=== PATIENT | female | born 1955 | race Caucasian/White ===

== ENCOUNTER 2018-12-24 17:36 | Emergency (ER) | payer OTHER ==
[~2018-12-24] VITALS: Ht 162.6 cm; Wt 86.6 kg
[~2018-12-24 17:36] MED LIST: AXID300 MG PO; CALCIUM CITRAT250 MG PO; COLACE100 MG PO; CRESTOR10 MG PO; DAILY VITAMIN1 EAC3 PO; MACRODANTIN50 MG PO; SYNTHROID50 MCG PO; VITAMIN D1000 UNIT PO; Z.0.ADULT LOW DOSE81 PO; Z.0.ANTIVERT12.5 MG PO; Z.0.CRESTOR10 MG PO; Z.0.HYDROCHLOROTHIA2 PO; Z.0.LISINOPRIL10 MG PO; Z.0.PRILOSEC20 MG PO; Z.0.SYNTHROID25 MCG PO; Z.0.TENORMIN50 MG PO; Z.0.TOVIAZ8 MG PO; Z.0.ZETIA10 MG PO; Z.0.ZOLOFT100 MG PO
--- OUTSIDE RECORDS SUMMARY | 2018-12-24 17:39 | XMS REPORT | Clinical Summary ---
Author Author [facility] Organization [facility] Address Unknown Phone Unavailable Care Team Providers Care Corncob Pipes Assembler Name Role Phone Mindy Laguerre MD PCP Unavailable Allergies Comments Active Allergy Reactions Severity Noted Date Morphine Other (See 09/11/2015 Comments) Morphine Sulfate 01/03/2016 Penicillins Other (See 09/11/2015 Comments) Tetanus Immune Globulin 01/03/2016 Tetanus Vaccines And Other (See 09/11/2015 Toxoid Comments) Medications End Date Status Medication Sig Dispensed Refills Start Date Active fesoterodine (TOVIAZ) 8 Take 8 mg by 0 mg tablet extended mouth. 4 release 24 hr Active cholecalciferol, vitamin Take by 0 D3, (VITAMIN D3) 2,000 mouth. unit capsule capsule Active omeprazole (PriLOSEC) 20 Take 20 mg by 0 MG capsule mouth daily. Active valACYclovir (VALTREX) Take 1 tablet 2 tablet 10 1000 MG tablet (1,000 mg 6 total) by mouth 2 (two) times a day as needed (fever blisters). Active ezetimibe (ZETIA) 10 mg 0 tablet 8 Active aspirin (ECOTRIN) 81 MG by NOT 0 enteric coated tablet APPLICABLE route. Active sertraline (ZOLOFT) 100 TAKE 1 TABLET 180 tablet 3 MG tablet TWICE A DAY. 8 (200 MG DAILY) Active rosuvastatin (CRESTOR) 20 TAKE 1 TABLET 90 tablet 3 MG tablet DAILY 8 Active buPROPion XL (WELLBUTRIN TAKE 1 TABLET 90 tablet 3 XL) 150 MG 24 hr tablet DAILY 9 Active SYNTHROID 25 mcg tablet Take 1 tablet 90 tablet 2 (25 mcg 9 total) by mouth every morning. Active metFORMIN XR Take 2 360 tablet 3 (GLUCOPHAGE-XR) 500 mg 24 tablets 9 hr tablet (1,000 mg total) by mouth 2 (two) times a day. 11/15/2019 Active conjugated estrogens Insert 0.5 g 30 g 0 (PREMARIN) 0.625 mg/gram into the 9 vaginal cream vagina 3 (three) times a week. Active OZEMPIC 0.25 mg or 0.5 INJECT 0.25 12 Syringe 0 mg(2 mg/1.5 mL) pen MG 9 injector SUBCUTANEOUS EVERY 7 DAYS 10/14/2018 Discontinued docusate sodium (COLACE) Take 100 mg 0 100 MG capsule by mouth 2 (two) times a day as needed for constipation. 10/14/2018 Discontinued therapeutic multivitamin Take 1 tablet 0 (THERAGRAN) tablet by mouth daily. 04/15/2018 Discontinued magnesium oxide 250 mg Take 250 mg 0 tablet by mouth daily. 01/08/2018 buPROPion XL (WELLBUTRIN Take 1 tablet 30 tablet 0 XL) 150 MG 24 hr tablet (150 mg 7 total) by mouth daily. 03/07/2018 Discontinued lisinopril TAKE 1 TABLET 90 tablet 3 (PRINIVIL,ZESTRIL) 10 mg DAILY 7 tablet 02/14/2018 rosuvastatin (CRESTOR) 20 Take 1 tablet 30 tablet 0 MG tablet (20 mg total) 7 by mouth daily. Until mail order arrives. NO REFILLS 04/04/2018 Discontinued sertraline (ZOLOFT) 100 TAKE 1 TABLET 180 tablet 3 201 MG tablet TWICE A DAY. 7 (200 MG DAILY) 10/14/2018 Discontinued metFORMIN XR TAKE 1 TABLET 180 tablet 3 (GLUCOPHAGE-XR) 500 mg 24 TWICE DAILY 8 hr tablet 10/14/2018 Discontinued SYNTHROID 25 mcg tablet TAKE 1 TABLET 90 tablet 2 EVERY MORNING 8 08/20/2018 Discontinued buPROPion XL (WELLBUTRIN TAKE 1 TABLET 90 tablet 1 XL) 150 MG 24 hr tablet DAILY 8 11/14/2018 Discontinued lisinopril TAKE 1 TABLET 90 tablet 3 (PRINIVIL,ZESTRIL) 10 mg DAILY 8 tablet 05/15/2018 ciprofloxacin (CIPRO) 500 Take 1 tablet 14 tablet 0 MG tablet (500 mg 8 total) by mouth 2 (two) times a day for 7 days. 05/08/2018 Discontinued methylPREDNISolone follow 21 tablet 0 (MEDROL DOSEPAK) 4 mg package 8 tablet directions 06/07/2018 dicyclomine (BENTYL) 20 Take 1 tablet 60 tablet 0 201 mg tablet (20 mg total) 8 by mouth 2 (two) times a day for 30 days. 06/07/2018 dicyclomine (BENTYL) 20 Take 1 tablet 60 tablet 0 mg tablet (20 mg total) 8 by mouth 2 (two) times a day for 30 days. 11/28/2018 Discontinued semaglutide (OZEMPIC) Inject 0.25 1 Syringe 0 0.25 mg or 0.5 mg(2 mg under the 9 mg/1.5 mL) pen injector skin every 7 days. Active Problems Problem Noted Date Enchondroma of humerus 04/04/2017 Type 2 diabetes mellitus with hyperglycemia, without long-term current use 10/02/2016 of insulin Iron deficiency anemia 10/02/2016 Vitamin D deficiency 10/02/2016 Adrenal mass 09/11/2015 Overview: Last MR in 2012 Depression 09/11/2015 Essential hypertension 09/11/2015 Herpes labialis 09/11/2015 HLD (hyperlipidemia) 09/11/2015 Hypothyroidism 09/11/2015 Morbid obesity 09/11/2015 Osteopenia 09/11/2015 Recurrent urinary tract infection 09/11/2015 Overview: Macrodantin Urinary urgency 09/11/2015 Umbilical hernia 09/11/2015 Encounters Care Team Description Date Type Specialty Mindy Laguerre MD 11/28/2018 Refill Internal Medicine Mindy Laguerre MD Type 2 diabetes mellitus with hyperglycemia, without long-term current use of insulin (HCC) (Primary Dx); Essential hypertension; Acute cystitis without hematuria; Psoriasis 11/14/2018 Office Visit Internal Medicine Mindy Laguerre MD 10/16/2018 Orders Only Internal Medicine Mindy Laguerre MD 10/15/2018 Orders Only Internal Medicine Mindy Laguerre MD Type 2 diabetes mellitus with hyperglycemia, without long-term current use of insulin (HCC) (Primary Dx); Mixed hyperlipidemia; Acquired hypothyroidism 10/14/2018 Office Visit Internal Medicine Mindy Laguerre MD 08/20/2018 Refill Internal Medicine Mindy Laguerre MD 05/09/2018 Telephone Internal Medicine Shine Richmond MD Colitis (Primary Dx) 05/08/2018 Emergency Emergency Medicine Mindy Laguerre MD Flu vaccine need (Primary Dx); Flu-like symptoms; Gastroenteritis 05/08/2018 Office Visit Internal Medicine Mindy Laguerre MD 05/08/2018 Telephone Internal Medicine Bladimir Tom MA Type 2 diabetes mellitus without complication, without long- term current use of insulin (Primary Dx); Transaminitis 04/18/2018 Telephone Internal Medicine Mindy Laguerre MD Flu vaccine need (Primary Dx); Routine general medical examination at a health care facility; Essential hypertension; Acquired hypothyroidism; Mixed hyperlipidemia; Type 2 diabetes mellitus without complication, without long-term current use of insulin; Vitamin D deficiency 04/15/2018 Office Visit Internal Medicine Mindy Laguerre MD 04/04/2018 Refill Internal Medicine Mindy Laguerre MD 03/07/2018 Refill Internal Medicine Mindy Laguerre MD 02/04/2018 Refill Internal Medicine after 12/23/2017 Immunizations Name Dates Previously Given Next Due FLUZONE HIGH-DOSE PF 04/15/2018 INFLUENZA QUAD PF 04/10/2017, 07/04/2016 Influenza (IM) 04/29/2015 Preservative Free Influenza Trivalent 04/29/2014 Pneumococcal Conjugate 07/30/2013 Zoster 10/28/2012 Family History Medical History Relation Name Comments Diabetes Father Heart disease Father Stroke Maternal Grandfather Heart disease Maternal Grandmother COPD Mother Depression Mother Diabetes Mother Heart disease Mother Hypertension Mother Thyroid disease Mother Relation Name Status Comments Father Maternal Grandfather Maternal Grandmother Mother Social History Date Tobacco Use Types Packs/Day Years Used Never Smoker Smokeless Tobacco: Never Used Alcohol Use Drinks/Week oz/Week Comments Yes Sex Assigned at Date Recorded Not on file Industry Job Start Date Occupation Not on file Not on file Not on file Travel End Travel History Travel Start No recent travel history available. Last Filed Vital Signs Time Taken Vital Sign Reading 11/14/2018 11:11 AM CDT Blood Pressure 131/64 11/14/2018 11:11 AM CDT Pulse 82 11/14/2018 11:11 AM CDT Temperature 37.2 C (99 F) 05/08/2018 4:07 PM CDT Respiratory Rate 16 11/14/2018 11:11 AM CDT Oxygen Saturation 97% - Inhaled Oxygen - Concentration 11/14/2018 11:11 AM CDT Weight 89.8 kg (198 lb) 11/14/2018 11:11 AM CDT Height 162.6 cm (5' 4") 11/14/2018 11:11 AM CDT Body Mass Index 33.99 Plan of Treatment Care Team Description Date Type Specialty Mindy Laguerre MD [address] [facility] [address] [place] [address] [id number] 01/08/2019 Office Visit Internal Medicine Mindy Laguerre MD [address] [place], [place] [address] 05/16/2019 Office Visit Internal Medicine Health Maintenance Due Date Last Done Comments SHINGLES VACCINES (#1) 10/29/2005 BREAST CANCER SCREENING 02/27/2019 02/27/2017, 01/20/2016, 01/12/2016, Additional history exists INFLUENZA VACCINE 02/27/2019 04/15/2018, 04/15/2018, 04/10/2017, Additional history exists DIABETIC FOOT EXAM 04/15/2019 04/15/2018, 04/15/2018, 01/08/2017 URINE MICROALBUMIN 04/15/2019 04/15/2018, 04/15/2018, 01/08/2017, Additional history exists DIABETIC RETINAL EYE EXAM 07/30/2019 07/30/2017, 10/28/2014 COLON CANCER SCREENING 07/30/2023 07/30/2013, 07/30/2013 Procedures Comments Procedure Name Priority Date/Time Associated Diagnosis MICROSCOPIC EXAMINATION Routine 11/14/2018 12:38 PM CDT URINALYSIS, COMPLETE, Routine 11/14/2018 Type 2 diabetes mellitus WITH REFLEX TO CULTURE 12:38 PM CDT with hyperglycemia, without long-term current use of insulin (HCC) Essential hypertension Acute cystitis without hematuria Psoriasis MICROSCOPIC EXAMINATION Routine 10/14/2018 12:17 PM CDT BETA HYDROXYBUTYRATE Routine 10/14/2018 Type 2 diabetes mellitus 12:17 PM CDT with hyperglycemia, without long-term current use of insulin (HCC) INSULIN, RANDOM Routine 10/14/2018 Type 2 diabetes mellitus 12:17 PM CDT with hyperglycemia, without long-term current use of insulin (HCC) URINALYSIS, COMPLETE, Routine 10/14/2018 Type 2 diabetes mellitus WITH REFLEX TO CULTURE 12:17 PM CDT with hyperglycemia, without long-term current use of insulin (HCC) T3, FREE Routine 10/14/2018 Acquired hypothyroidism 12:17 PM CDT T4, FREE Routine 10/14/2018 Acquired hypothyroidism 12:17 PM CDT THYROID STIMULATING Routine 10/14/2018 Acquired hypothyroidism HORMONE 12:17 PM CDT LIPID PANEL Routine 10/14/2018 Mixed hyperlipidemia 12:17 PM CDT HEMOGLOBIN A1C Routine 10/14/2018 Type 2 diabetes mellitus 12:17 PM CDT with hyperglycemia, without long-term current use of insulin (HCC) CBC WITH PLATELET AND Routine 10/14/2018 Type 2 diabetes mellitus DIFFERENTIAL 12:17 PM CDT with hyperglycemia, without long-term current use of insulin (HCC) Mixed hyperlipidemia Acquired hypothyroidism COMPREHENSIVE METABOLIC Routine 10/14/2018 Type 2 diabetes mellitus PANEL 12:17 PM CDT with hyperglycemia, without long-term current use of insulin (HCC) Mixed hyperlipidemia URINE CULTURE, Routine 10/14/2018 COMPREHENSIVE (RODRIGO 12:17 PM CDT HIST) CT ABDOMEN PELVIS W STAT 05/08/2018 CONTRAST 2:16 PM CDT CAMPYLOBACTER CULTURE Routine 05/08/2018 1:36 PM CDT GASTROINTESTINAL PANEL Routine 05/08/2018 1:36 PM CDT ESTIMATED GFR STAT 05/08/2018 12:33 PM CDT COMPREHENSIVE METABOLIC STAT 05/08/2018 PANEL 12:33 PM CDT URINALYSIS STAT 05/08/2018 12:33 PM CDT HC COMPLETE BLD COUNT STAT 05/08/2018 W/AUTO DIFF 12:33 PM CDT LIPASE LEVEL STAT 05/08/2018 12:30 PM CDT POCT INFLUENZA A/B Routine 05/08/2018 Flu-like symptoms 11:14 AM CDT MICROSCOPIC EXAMINATION Routine 04/15/2018 12:45 PM CDT VITAMIN D 25 HYDROXY Routine 04/15/2018 Vitamin D deficiency LEVEL 12:45 PM CDT MICROALBUMIN, URINE, Routine 04/15/2018 Type 2 diabetes mellitus RANDOM 12:45 PM CDT without complication, without long-term current use of insulin HEMOGLOBIN A1C Routine 04/15/2018 Type 2 diabetes mellitus 12:45 PM CDT without complication, without long-term current use of insulin T4, FREE Routine 04/15/2018 Acquired hypothyroidism 12:45 PM CDT T3, FREE Routine 04/15/2018 Acquired hypothyroidism 12:45 PM CDT URINALYSIS, COMPLETE, Routine 04/15/2018 Routine general medical WITH REFLEX TO CULTURE 12:45 PM CDT examination at a health care facility Essential hypertension THYROID STIMULATING Routine 04/15/2018 Acquired hypothyroidism HORMONE 12:45 PM CDT LIPID PANEL Routine 04/15/2018 Mixed hyperlipidemia 12:45 PM CDT CBC WITH PLATELET AND Routine 04/15/2018 Routine general medical DIFFERENTIAL 12:45 PM CDT examination at a health care facility COMPREHENSIVE METABOLIC Routine 04/15/2018 Routine general medical PANEL 12:45 PM CDT examination at a health care facility Mixed hyperlipidemia FLUZONE HIGH-DOSE PF Routine 04/15/2018 Flu vaccine need (0.5ML SYRINGE) 11:45 AM CDT after 12/23/2017 Results * URINALYSIS, COMPLETE, WITH REFLEX TO CULTURE (11/14/2018 12:38 PM CDT) Only the most recent of 3 results within the time period is included. Specific 1.019 1.005 - 1.030 [facility] gravity, urine pH, urine 5.0 5.0 - 7.5 [facility] Color, UA Yellow Yellow [facility] Appearance Cloudy (A) Clear [facility] WBC esterase, Negative Negative [facility] urine Protein, UA Negative Negative/Trace [facility] Glucose, urine Negative Negative [facility] Ketones, UA Negative Negative [facility] Occult blood, Negative Negative [facility] urine Bilirubin, UA Negative Negative [facility] Urobilinogen, 0.2 0.2 - 1.0 mg/dL [facility] UA Nitrite, UA Negative Negative [facility] Microscopic CommentComment: Microscopic [facility] examination follows if indicated. Microscopic See below:Comment: Microscopic [facility] examination was indicated and was performed. Urinalysis CommentComment: This specimen [facility] reflex will not reflex to a Urine Culture. Specimen Narrative Performed At Performed at: [facility] [address] [place], [place] [id number] Sr Vice President: Wan Howard MD, Phone:[phone] Performing Organization Address City/State/Zipcode Phone Number [facility] * Microscopic Examination (11/14/2018 12:38 PM CDT) Only the most recent of 3 results within the time period is included. WBC, UA 0-5 0 - 5 /hpf [facility] RBC, UA 0-2 0 - 2 /hpf [facility] Epithelial 0-10 0 - 10 /hpf [facility] cells (non renal) Casts Present (A) None seen /lpf [facility] Cast type Hyaline casts N/A [facility] Mucus, UA Present Not Estab. [facility] Bacteria, UA None seen None seen/Few [facility] Specimen Narrative Performed At Performed at:[address] [place] [address] [facility] [address] [place], [place] [id number] Sr Vice President: Wan Howard MD, Phone:[phone] Performing Organization Address [facility] [place] [place] Phone Number [facility] * Urine Culture, Comprehensive (10/14/2018 12:17 PM CDT) [facility] Urine culture No growth [facility] Specimen Narrative Performed At Performed at: [facility] [address] [place], [place] [id number] Sr Vice President: Wan Howard MD, Phone:[phone] Performing Organization Address [facility] [place] [place] Phone Number [facility] * Beta hydroxybutyrate (10/14/2018 12:17 PM CDT) [facility] Beta 2.0 mg/dL [facility] hydroxybutyrate Comment: Reference Range: All Ages (fasting): 0.2 - 2.8 Specimen Blood Narrative Performed At Performed at:[id number] Sr Vice President: Edison Wolf MD, Phone:[phone] Performing Organization Address [facility] [place] [place] Phone Number [facility] * Insulin, random (10/14/2018 12:17 PM CDT) [facility] Insulin 41.4 (H) 2.6 - 24.9 uIU/mL [facility] Specimen Blood Narrative Performed At Performed at:[address] [place] [address] [facility] [address] [place], [place] [id number] Sr Vice President: Wan Howard MD, Phone:[phone] Performing Organization Address [facility] [place] [place] Phone Number [facility] * CBC with platelet and differential (10/14/2018 12:17 PM CDT) Only the most recent of 3 results within the time period is included. [facility] WBC 7.1 3.4 - 10.8 x10E3/uL [facility] RBC 4.93 3.77 - 5.28 x10E6/uL [facility] HGB 14.1 11.1 - 15.9 g/dL [facility] HCT 46.1 34.0 - 46.6 % [facility] MCV 94 79 - 97 fL [facility] MCH 28.6 26.6 - 33.0 pg [facility] MCHC 30.6 (L) 31.5 - 35.7 g/dL [facility] RDW 13.5 12.3 - 15.4 % [facility] Platelet count 207 150 - 379 x10E3/uL [facility] Neutrophils 77 Not Estab. % [facility] Lymphocytes 17 Not Estab. % [facility] Monocytes 5 Not Estab. % [facility] Eosinophils 1 Not Estab. % [facility] Basophils 0 Not Estab. % [facility] Neutrophils, 5.3 1.4 - 7.0 x10E3/uL [facility] absolute Lymphocytes, 1.2 0.7 - 3.1 x10E3/uL [facility] absolute Monocytes, 0.4 0.1 - 0.9 x10E3/uL [facility] absolute Eosinophils, 0.1 0.0 - 0.4 x10E3/uL [facility] absolute Basophils, 0.0 0.0 - 0.2 x10E3/uL [facility] absolute Immature 0 Not Estab. % [facility] granulocytes Immature grans 0.0 0.0 - 0.1 x10E3/uL [facility] (abs) Specimen Blood Narrative Performed At Performed at:[address] [place] [address] [id number] Sr Vice President: Wan Howard MD, Phone:[phone] Performing Organization Address [facility] [place] [place] Phone Number [facility] * T3, free (10/14/2018 12:17 PM CDT) Only the most recent of 2 results within the time period is included. T3, free 2.8 2.0 - 4.4 pg/mL [facility] Specimen Blood Narrative Performed At Performed at: [id number] Sr Vice President: Wan Howard MD, Phone:[phone] Performing Organization Address [facility] [place] [place] Phone Number [facility] * Thyroid stimulating hormone (10/14/2018 12:17 PM CDT) Only the most recent of 2 results within the time period is included. TSH 1.610 0.450 - 4.500 uIU/mL [facility] Specimen Blood Narrative Performed At Performed at: [facility] [place], [id number] Sr Vice President: Wan Howard MD, Phone:[phone] Performing Organization Address [facility] [place] [place] Phone Number [facility] * T4, free (10/14/2018 12:17 PM CDT) Only the most recent of 2 results within the time period is included. T4, free 1.30 0.82 - 1.77 ng/dL [facility] Specimen Blood Narrative Performed At Performed at: [id number] Sr Vice President: Wan Howard MD, Phone:[phone] Performing Organization Address [facility] [place] [place] Phone Number [facility] * Hemoglobin A1c (10/14/2018 12:17 PM CDT) Only the most recent of 2 results within the time period is included. Pathologist [facility] Hemoglobin A1C 9.5 (H) 4.8 - 5.6 % [facility] Comment: Prediabetes: 5.7 - 6.4 Diabetes: >6.4 Glycemic control for adults with diabetes: <7.0 Specimen Blood Narrative Performed At [facility]formed at: [id number] Sr Vice President: Wan Howard MD, Phone:[phone] Performing Organization Address [facility] [place] [place] Phone Number [facility] * Lipid panel (10/14/2018 12:17 PM CDT) Only the most recent of 2 results within the time period is included. Cholesterol 113 100 - 199 mg/dL [facility] Triglycerides 153 (H) 0 - 149 mg/dL [facility] HDL cholesterol 48 >39 mg/dL [facility] VLDL 31 5 - 40 mg/dL [facility] cholesterol lauren LDL cholesterol 34 0 - 99 mg/dL [facility] calculated Non-HDL 65 0 - 129 mg/dL [facility] cholesterol Specimen Blood Narrative Performed At Performed at:[id number] Sr Vice President: Wan Howard MD, Phone:[phone] Performing Organization Address [facility] [place] [place] Phone Number [facility] * Comprehensive metabolic panel (10/14/2018 12:17 PM CDT) Only the most recent of 3 results within the time period is included. Glucose 235 (H) 65 - 99 mg/dL [facility] BUN, whole 17 8 - 27 mg/dL [facility] blood Creatinine 0.67 0.57 - 1.00 mg/dL [facility] EGFR Non-Afr. 95 >59 mL/min/1.73 [facility] [place] EGFR 109 >59 mL/min/1.73 [facility] [place] BUN/creatinine 25 12 - 28 [facility] ratio Sodium 139 134 - 144 mmol/L [facility] Potassium 4.8 3.5 - 5.2 mmol/L [facility] Chloride 97 96 - 106 mmol/L [facility] CO2 25 20 - 29 mmol/L [facility] Calcium 9.7 8.7 - 10.3 mg/dL [facility] Protein 7.4 6.0 - 8.5 g/dL [facility] Albumin, S 4.3 3.6 - 4.8 g/dL [facility] Globulin, total 3.1 1.5 - 4.5 g/dL [facility] Albumin/globuli 1.4 1.2 - 2.2 [facility] n ratio Total bilirubin 0.5 0.0 - 1.2 mg/dL [facility] Alkaline 56 39 - 117 IU/L [facility] phosphatase AST 39 0 - 40 IU/L [facility] ALT 61 (H) 0 - 32 IU/L [facility] Specimen Blood Narrative Performed At Performed at:[facility] [address] [place], [id number] Sr Vice President: Wan Howard MD, Phone:[phone] Performing Organization Address [facility] [place] [place] Phone Number [facility] * CT Abdomen Pelvis W Contrast (05/08/2018 2:16 PM CDT) Specimen Narrative Performed At EXAMINATION:CT ABDOMEN PELVIS W CONTRAST HM [facility] CLINICAL HISTORY:abd paindiarrhea TECHNIQUE: Multiple axial images of the abdomen and pelvis were obtained following intravenous administration of iodinated contrast. Sagittal and coronal computerized reformatted images were also obtained. All CT images were acquired using low-dose technique with automated exposure control. COMPARISON: None. FINDINGS: Abdomen: 1.Limited images to the lung bases demonstrates subpleural groundglass attenuation and opacity measuring 8 x 9 mm in the periphery of the lingula most likely inflammatory or infectious in etiology. Correlation with dedicated chest CT findings with follow-up may be of benefit. 2.Postsurgical changes likely relating to gastric sleeve surgery. 3.The liver , pancreas, gallbladder, adrenal glands and kidneys appear normal. There is a cyst in the inferior pole left kidney measuring 12 mm. The spleen is slightly enlarged measuring 15 cm in AP diameter. 4.The portal vein, SMV, and splenic vein are patent. Abdominal aorta is of normal caliber. No retroperitoneal lymphadenopathy. Pelvis: 1.The bladder appears normal. 2.A pelvic mass or fluid collection is not identified. 3.Mild wall thickening involving the ascending and transverse colon. The findings are likely related to mild colitis. 4.Nonspecific right external iliac chain lymph nodes measuring up to 10 mm. 5.Osseous structures are intact. IMPRESSION: 1.Mild wall thickening involving the ascending and transverse colon possibly relating to colitis. 2.Subpleural groundglass lesion measuring 8 x 9 mm in the lingula most likely inflammatory or infectious in etiology. Follow-up with dedicated CT of the chest may be of benefit in 3-6 month interval time. [id number] Procedure Note Hm Interface, Radiology Results Incoming - 05/08/2018 2:40 PM CDT EXAMINATION: CT ABDOMEN PELVIS W CONTRAST CLINICAL HISTORY: abd pain diarrhea TECHNIQUE: Multiple axial images of the abdomen and pelvis were obtained following intravenous administration of iodinated contrast. Sagittal and coronal computerized reformatted images were also obtained. All CT images were acquired using low-dose technique with automated exposure control. COMPARISON: None. FINDINGS: Abdomen: 1. Limited images to the lung bases demonstrates subpleural groundglass attenuation and opacity measuring 8 x 9 mm in the periphery of the lingula most likely inflammatory or infectious in etiology. Correlation with dedicated chest CT findings with follow-up may be of benefit. 2. Postsurgical changes likely relating to gastric sleeve surgery. 3. The liver , pancreas, gallbladder, adrenal glands and kidneys appear normal. There is a cyst in the inferior pole left kidney measuring 12 mm. The spleen is slightly enlarged measuring 15 cm in AP diameter. 4. The portal vein, SMV, and splenic vein are patent. Abdominal aorta is of normal caliber. No retroperitoneal lymphadenopathy. Pelvis: 1. The bladder appears normal. 2. A pelvic mass or fluid collection is not identified. 3. Mild wall thickening involving the ascending and transverse colon. The findings are likely related to mild colitis. 4. Nonspecific right external iliac chain lymph nodes measuring up to 10 mm. 5. Osseous structures are intact. IMPRESSION: 1. Mild wall thickening involving the ascending and transverse colon possibly relating to colitis. 2. Subpleural groundglass lesion measuring 8 x 9 mm in the lingula most likely inflammatory or infectious in etiology. Follow-up with dedicated CT of the chest may be of benefit in 3-6 month interval time. [id number] Performing Organization Address [facility] Hospital/[facility]/Zipcode Phone Number [facility] [address] [place] [address] * Gastrointestinal panel (05/08/2018 1:36 PM CDT) Gastrointestina Positive for Campylobacter [facility] DEPARTMENT l panel OF PATHOLOGY Negative for all other AND GENOMIC pathogens tested: MEDICINE Negative for Salmonella Negative for Diarrheagenic E coli/Shigella Negative for Shiga-like toxin-producing E coli Negative for Plesiomonas shigelloides Negative for Yersinia enterocolitica Negative for Vibrio species Negative for Clostridium difficile (Toxin A/B) Negative for Cryptosporidium Negative for Giardia lamblia Negative for Cyclospora cayeteanensis Negative for Entamoeba histolytica Negative for Adenovirus F 40/41 Negative for Astrovirus Negative for Norovirus GI/GII Negative for Rotavirus A Negative for Sapovirus Negative for E coli 0157 This real-time PCR assay detects the presence of nucleic acids (RNA or DNA) for the gastrointestinal pathogens listed. A result of "Not-detected" does not exclude the possibility of the presence of one or more pathogens at concentrations less than the detectable limits of the assay. This organism has been reported to the [facility] Department as required, [address], [place] [address]. (A) Comment: Specimen Information Specimen Source: Stool Specimen Site: Nonpreserved Specimen Stool - Nonpreserved Performing Organization Address [facility] Phone Number [facility] DEPARTMENT OF [address] [place] [address] PATHOLOGY AND GENOMIC MEDICINE * Campylobacter culture (05/08/2018 1:36 PM CDT) Campylobacter Campylobacter coli [facility] DEPARTMENT culture isolate This organism has been OF PATHOLOGY reported to the [facility] Department as required, [address], [place] [address]. The performance characteristics of this assay on this isolate were validated by the Microbiology Laboratory at [facility].This source has not been approved by the U.S. Food and Drug Administration.The results are not intended to be used as the sole means for clinical diagnosis or patient management.The Microbiology Laboratory is authorized under the clinical Laboratory Improvement Amendments of 1988 (CLIA-88) to perform high complexity testing. (A) Comment: Specimen Information Specimen Source: Stool Specimen Site: Nonpreserved Specimen Stool - Nonpreserved Performing Organization Address City/State/Zipcode Phone Number [facility] DEPARTMENT OF [address] [place] [address] [facility] * Estimated GFR (05/08/2018 12:33 PM CDT) [facility] Estimated GFR >=90 mL/min/1.73 m2 DEPARTMENT Comment: OF PATHOLOGY [facility] AND [place] [address] EMERGENCY CARE >=90 Normal or high CENTER G2 60-89Mildly decreased [id number] Mildly to moderately decreased [id number] Moderately to severely decreased G4 15-29Severely decreased G5 <15Kidney failure The eGFR was calculated using the Chronic Kidney Disease Epidemiology Collaboration (CKD-EPI) equation. Interpretation is based on recommendations of the National Kidney Foundation-Kidney Disease Outcomes Quality Initiative (NKF-KDOQI) published in 2014. Specimen Plasma specimen Performing Organization Address City/State/Zipcode Phone Number DEPARTMENT OF [address] [place] [address] [facility] AND [address] * Urinalysis (05/08/2018 12:33 PM CDT) [facility] Glucose, UA Negative Negative DEPARTMENT OF PATHOLOGY AND [facility] Bilirubin, UA Positive@UBIL (A) Negative DEPARTMENT OF PATHOLOGY AND GENOMIC [facility] Ketones, UA Negative Negative DEPARTMENT OF PATHOLOGY AND GENOMIC [facility] Specific =>1.030 1.001 - 1.035 DEPARTMENT gravity, UA OF PATHOLOGY AND [facility] Blood, UA Small (A) Negative DEPARTMENT [facility] pH, UA 5.5 5.0 - 8.5 DEPART[facility] Protein, UA Negative Negative DEPART[facility] Urobilinogen, <2.0 <2.0 DEPARTMENT UA [facility] Nitrite, UA Negative Negative DEPART[facility] OF [facility]OLOG[facility] Leukocyte Negative Negative DEPARTMENT esterase, UA [facility] Color, UA Yellow [facility]PART[facility] Appearance, UA Sl Cloudy DEPARTMENT PATHOLOG[facility] Specimen Urine Performing Organization Address City/State/[place] [address] * Lipase level (05/08/2018 12:30 PM CDT) Pathologist [facility] Lipase 39 13 - 60 U/L DEPART[facility] OF [facility]OLOG[facility] Specimen Serum Performing Organization Address City/[facility] [place] [address] * POC Influenza A/B (05/08/2018 11:14 AM CDT) [facility] Rapid Influenza negative A Ag Rapid Influenza negative B Ag Specimen Nares * Microalbumin, urine, random (04/15/2018 12:45 PM CDT) [facility] Microalbumin, 12.3 Not Estab. ug/mL [facility] urine Specimen Urine Narrative Performed At Performed at: - [facility] [address] [place], [place] [id number] Sr Vice President: Wan Howard MD, Phone:[phone] Performing Organization Address City/State/Zipcode Phone Number [facility] * Vitamin D 25 hydroxy level (04/15/2018 12:45 PM CDT) [facility] Vitamin D, 36.2 30.0 - 100.0 ng/mL [facility] 25-hydroxy Comment: Vitamin D deficiency has been defined by the [place] [employer] and an Endocrine Society practice guideline as a level of serum 25-OH vitamin D less than 20 ng/mL (1,2). The Endocrine Society went on to further define vitamin D insufficiency as a level between 21 and 29 ng/mL (2). 1. IOM ([place] of [employer]). 2010. Dietary reference intakes for calcium and D. [place]: The National Academies Press. 2. Keke MF, Rosi NC, Josh VARGAS, et al. Evaluation, treatment, and prevention of vitamin D deficiency: an Endocrine Society clinical practice guideline. JCEM. 2010; 96(7):1911-30. Specimen Blood Narrative Performed At Performed at: - [facility] [address] [place], [id number] Sr Vice President: Wan Howard MD, Phone:[phone] Performing Organization Address City/State/Zipcode Phone Number [facility] * Fluzone High-Dose PF (0.5mL Syringe) (04/15/2018 11:45 AM CDT) Narrative Performed At Flu Vaccine Questions: 1. Have you ever had an allergic reaction to the flu Vaccine?:no 2. Are you allergic to eggs, egg products or gelatin?:no 3. Do you have a history of Guillain -Candler Syndrome?:no 4. Are you allergic to Thimerosal?:no 5. Are you allergic to Latex?:no 6. Do you currently feel ill or have a fever?:no 7. If you are a female, are you ?:no All yes answers to the questions above are reviewed with the physician before proceeding. Bladimir Tom MA after 12/23/2017 Insurance Type Payer Benefit Subscriber ID Effective Phone Address Plan / Dates Group Commercial CIG[employer] APWU CIGNA xxxxxxxxxxx 2018 -Present Advance Directives Patient has advance care planning documents on file. For more information, yenny moon contact: Fermin Lund [address] [place] [address]
[2018-12-24] MEDS ORDERED: SODIUM CHLORIDE 0.9% 1000ML 1,000 ML ONE (18:18)
[2018-12-24] MEDS ORDERED: ONDANSETRON HCL INJ 2MG/ML 2ML 2 MG/ML VIAL ONE (18:18)
[2018-12-24] MEDS ORDERED: ONDANSETRON HCL INJ 2MG/ML 2ML 2 MG/ML VIAL IV NR (18:30)
[2018-12-24] MEDS ORDERED: SODIUM CHLORIDE 0.9% 1000ML 1,000 ML IV ONE (18:30)
== END 2018-12-24 18:45 | disposition home or self-care (01) ==
LOC: FSED 17:36
DX: K29.00 Acute gastritis without bleeding (principal)
CPT/HCPCS: 80048; 80076; 81003; 85025; 99283; J2405; J7030

== ENCOUNTER → 2021-04-28 | Day surgery (SDC) | payer MEDICARE, OTHER ==
[2021-04-26 10:44] LABS: BASOPHILS % 0.1 % (0.0-1.0); EOSINOPHILS # (AUTO) 0.1 (0.0-0.4); EOSINOPHILS % 0.7 % (0.0-6.0); HEMATOCRIT 41.6 % (34.2-44.1); HEMOGLOBIN 13.3 g/dL (12.0-16.0); LYMPHOCYTES % 13.5 % (18.0-39.1); MEAN CORPUSCULAR HEMOGLOBIN 28.4 pg (28-32); MEAN CORPUSCULAR VOLUME 88.7 fL (81-99); MONOCYTES # (AUTO) 0.4 (0.2-0.8); MONOCYTES % 5.5 % (4.4-11.3); NEUTROPHILS # (AUTO) 5.7 (2.1-6.9); NEUTROPHILS % 79.8 % (38.7-80.0); PLATELET COUNT 166 x10e3/uL (140-360); RED BLOOD COUNT 4.69 x10e6/uL (3.6-5.1); RED CELL DISTRIBUTION WIDTH 13.1 % (11.7-14.4)
[~2021-04-28] MED LIST changes: +ASPIRIN81 MG PO; +BUPROPION XL150 MG PO; +CALCIUM PO; +DICYCLOMINE HCL10 MG PO; +FLAGYL500 MG PO; +OTEZLA30 MG PO; +OZEMPIC0.25 MG/0. SC; +PANTOPRAZOLE SO40 MG PO; +PROLIA60 MG/1 ML INJ; +QUERCETIN PO; +VITAMIN C1000 MG PO; +ZETIA10 MG PO; +ZINC PO
[2021-04-28 15:35] VITALS: BP 135/71
== END | disposition home or self-care (01) ==
LOC: OR 11:05
PROVIDERS: ATTEND Internal Medicine Gastroenterology
DX: K29.70 Gastritis, unspecified, without bleeding (principal); K22.8 Other specified diseases of esophagus; K21.9 Gastro-esophageal reflux disease without esophagitis; Z98.84 Bariatric surgery status; K59.09 Other constipation; I10 Essential (primary) hypertension; E11.9 Type 2 diabetes mellitus without complications; E78.00 Pure hypercholesterolemia, unspecified; E03.9 Hypothyroidism, unspecified; F41.9 Anxiety disorder, unspecified; F32.9 Major depressive disorder, single episode, unspecified; Z88.6 Allergy status to analgesic agent; Z88.0 Allergy status to penicillin; Z88.7 Allergy status to serum and vaccine; Z01.810 Encounter for preprocedural cardiovascular examination; Z01.812 Encounter for preprocedural laboratory examination; Z20.822 Contact with and (suspected) exposure to COVID-19; Z79.82 Long term (current) use of aspirin; Z79.84 Long term (current) use of oral hypoglycemic drugs; Z68.29 Body mass index [BMI] 29.0-29.9, adult
CPT/HCPCS: 36415 ×2; 43239; 82948; 85025; 87106; 87205; 88305; 88312; 93005; U0002; 43235

== ENCOUNTER 2021-08-05 13:13 | Emergency (ER) | payer MEDICARE, OTHER ==
[~2021-08-05] VITALS: Ht 162.6 cm; Wt 75.5 kg
[2021-08-05] MEDS ORDERED: BENZONATATE200 MG PO (14:19)
[2021-08-05] MEDS ORDERED: IBUPROFEN IB200 MG PO (14:19)
[2021-08-05] MEDS ORDERED: AZITHROMYCIN250 MG PO (14:19)
[2021-08-05] MEDS ORDERED: PROVENTIL HFA6.7 GM INH (14:19)
== END 2021-08-05 14:35 | disposition home or self-care (01) ==
LOC: FSED 13:54
DX: U07.1 COVID-19 (principal); R05.9 Cough, unspecified; R09.89 Other specified symptoms and signs involving the circulatory and respiratory systems; I10 Essential (primary) hypertension; E11.9 Type 2 diabetes mellitus without complications; E78.5 Hyperlipidemia, unspecified; K21.9 Gastro-esophageal reflux disease without esophagitis; E03.9 Hypothyroidism, unspecified; Z98.84 Bariatric surgery status
CPT/HCPCS: 99282

== ENCOUNTER → 2022-01-10 | Day surgery (SDC) | payer MEDICARE, OTHER ==
[2022-01-06 11:00] LABS: BASOPHILS % 0.1 % (0.0-1.0); EOSINOPHILS % 0.3 % (0.0-6.0); HEMATOCRIT 40.8 % (34.2-44.1); HEMOGLOBIN 13.1 g/dL (12.0-16.0); LYMPHOCYTES % 15.5 % (18.0-39.1); MEAN CORPUSCULAR HEMOGLOBIN 29.5 pg (28-32); MEAN CORPUSCULAR HGB CONC 32.1 g/dL (31-35); MEAN CORPUSCULAR VOLUME 91.9 fL (81-99); MONOCYTES # (AUTO) 0.4 (0.2-0.8); MONOCYTES % 6.5 % (4.4-11.3); NEUTROPHILS # (AUTO) 5.2 (2.1-6.9); NEUTROPHILS % 77.3 % (38.7-80.0); PLATELET COUNT 171 x10e3/uL (140-360); RED BLOOD COUNT 4.44 x10e6/uL (3.6-5.1); RED CELL DISTRIBUTION WIDTH 13.3 % (11.7-14.4)
[~2022-01-10] MED LIST changes: +ATROPINE SULFATE 1 MG/ML VIAL ONE; +AZITHROMYCIN250 MG PO; +BENZONATATE200 MG PO; +FENTANYL CITRATE/PF 100MCG/2 ML INJ ONE; +IBUPROFEN IB200 MG PO; +LIDOCAINE HCL 2% LOCAL INJ 5 ML SDV VIAL INJ ONE; +METHOTREXATE2.5 MG PO; +MIDAZOLAM HCL 2 MG/2 ML VIAL ONE; +POVIDONE IODINE 0.05% 0.05 % ML PO ONE; +PROPOFOL IV EMULSION 10 MG/ML 20 ML VIAL ONE; +PROVENTIL HFA6.7 GM INH
[2022-01-10 13:35] VITALS: BP 110/78
[2022-01-10 17:01] LABS: WBC,FECAL (FECAL LACTOFERRIN) NEGATIVE (NEGATIVE)
[2022-01-11 14:23] LABS: C DIFFICILE TOXIN A&B AMP PROB NEGATIVE (NEGATIVE)
== END | disposition home or self-care (01) ==
LOC: OR 10:08
PROVIDERS: ATTEND Internal Medicine Gastroenterology
DX: K52.9 Noninfective gastroenteritis and colitis, unspecified (principal); D12.2 Benign neoplasm of ascending colon; K57.30 Diverticulosis of large intestine without perforation or abscess without bleeding; K62.89 Other specified diseases of anus and rectum; K64.8 Other hemorrhoids; K59.09 Other constipation; K29.60 Other gastritis without bleeding; L40.50 Arthropathic psoriasis, unspecified; E11.9 Type 2 diabetes mellitus without complications; I25.10 Atherosclerotic heart disease of native coronary artery without angina pectoris; I10 Essential (primary) hypertension; E78.5 Hyperlipidemia, unspecified; E03.9 Hypothyroidism, unspecified; R63.4 Abnormal weight loss; M19.90 Unspecified osteoarthritis, unspecified site; F32.A Depression, unspecified; Z88.6 Allergy status to analgesic agent; Z88.0 Allergy status to penicillin; Z88.7 Allergy status to serum and vaccine; Z01.810 Encounter for preprocedural cardiovascular examination; Z01.812 Encounter for preprocedural laboratory examination; Z20.822 Contact with and (suspected) exposure to COVID-19; Z79.82 Long term (current) use of aspirin; Z79.84 Long term (current) use of oral hypoglycemic drugs; Z79.899 Other long term (current) drug therapy; Z68.26 Body mass index [BMI] 26.0-26.9, adult
CPT/HCPCS: 36415 ×2; 45380; 45385; 82948; 83630; 83993; 85025; 87045; 87177; 87328; 87493; 88305; 93005; J0461; J2001; J2250; J2704; J3010; U0002; 45384

== ENCOUNTER 2022-02-24 18:12 | Emergency (ER) | payer MEDICARE, OTHER ==
[~2022-02-24] VITALS: Ht 162.6 cm; Wt 67.6 kg
[~2022-02-24 18:12] MED LIST changes: -ATROPINE SULFATE 1 MG/ML VIAL ONE; -FENTANYL CITRATE/PF 100MCG/2 ML INJ ONE; -LIDOCAINE HCL 2% LOCAL INJ 5 ML SDV VIAL INJ ONE; -MIDAZOLAM HCL 2 MG/2 ML VIAL ONE; -POVIDONE IODINE 0.05% 0.05 % ML PO ONE; -PROPOFOL IV EMULSION 10 MG/ML 20 ML VIAL ONE
[2022-02-24] MEDS ORDERED: FAMOTIDINE 20 MG/2 ML VIAL IV ONE ×2 (19:00→19:32)
[2022-02-24] MEDS ORDERED: ASPIRIN 325 MG TAB PO ONE (19:00)
[2022-02-24] MEDS ORDERED: ONDANSETRON HCL INJ 2MG/ML 2ML 2 MG/ML VIAL IV ONE (19:00)
[2022-02-24] MEDS ORDERED: SODIUM CHLORIDE 0.9% 500ML 500 ML IV STA (19:00)
[2022-02-24] MEDS ORDERED: NITROGLYCERIN 2% OINT 1 GM PKT TOP ONE (19:30)
[2022-02-24] MEDS ORDERED: ASPIRIN 325 MG TAB ONE (19:32)
[2022-02-24] MEDS ORDERED: ONDANSETRON HCL INJ 2MG/ML 2ML 2 MG/ML VIAL ONE (19:32)
[2022-02-24] MEDS ORDERED: SODIUM CHLORIDE 0.9% 500ML 500 ML ONE (19:32)
[2022-02-24] MEDS ORDERED: CLOPIDOGREL BISULFATE 75 MG TAB PO ONE (19:45)
[2022-02-24] MEDS ORDERED: HEPARIN SOD (PORCINE) 5,000 UNIT/ML VIAL IV ONE (19:45)
[2022-02-24] MEDS ORDERED: NITROGLYCERIN 2% OINT 1 GM PKT ONE (19:53)
[2022-02-24] MEDS ORDERED: HEPARIN SOD (PORCINE) 5,000 UNIT/ML VIAL ONE (20:07)
[2022-02-24 20:25] VITALS: BP 183/77
== END 2022-02-24 20:25 | disposition other institution (70) ==
LOC: FSED 18:20
DX: R07.9 Chest pain, unspecified (principal); I21.9 Acute myocardial infarction, unspecified; R11.2 Nausea with vomiting, unspecified; I10 Essential (primary) hypertension; E11.9 Type 2 diabetes mellitus without complications; E78.5 Hyperlipidemia, unspecified; E03.9 Hypothyroidism, unspecified; K21.9 Gastro-esophageal reflux disease without esophagitis; Z20.822 Contact with and (suspected) exposure to COVID-19; Z98.84 Bariatric surgery status
CPT/HCPCS: 71045; 80053; 82553; 83880; 84484; 85025; 85379; 96374; 96376; 99284; J1644; J2405; J7040; U0002; 93005

== ENCOUNTER 2024-03-16 11:49 | Emergency (ER) | payer MEDICARE, OTHER ==
[~2024-03-16] VITALS: Ht 162.6 cm; Wt 80.5 kg
[2024-03-16] MEDS ORDERED: NITROFURANTOIN100 MG PO (13:21)
[2024-03-16] MEDS ORDERED: CEFTRIAXONE 1 GM VIAL ONE (13:32)
[2024-03-16] MEDS: CEFTRIAXONE 1 GM VIAL IM ONE (13:33)
[2024-03-16 13:58] VITALS: PULSE 78; RESP 18; TEMP 97.9; O2SAT 96
== END 2024-03-16 13:58 | disposition home or self-care (01) ==
LOC: FSED 11:55
DX: R30.0 Dysuria (principal); N39.0 Urinary tract infection, site not specified; R10.30 Lower abdominal pain, unspecified; I10 Essential (primary) hypertension; E11.9 Type 2 diabetes mellitus without complications; E78.5 Hyperlipidemia, unspecified; E03.9 Hypothyroidism, unspecified; K21.9 Gastro-esophageal reflux disease without esophagitis; F32.A Depression, unspecified; Z98.84 Bariatric surgery status
CPT/HCPCS: 81003; 87086; 99284; J0696

== ENCOUNTER 2024-05-13 06:06 | Inpatient (IN) | payer MEDICARE, OTHER ==
[~2024-05-13] VITALS: Ht 162.6 cm; Wt 79.4 kg
[~2024-05-13 06:06] MED LIST changes: +NITROFURANTOIN100 MG PO
[2024-05-13] MEDS: SODIUM CHLORIDE 0.9% 1000ML 1,000 ML IV STA (07:41)
[2024-05-13] MEDS: DICYCLOMINE HCL 20 MG/2 ML VIAL IM ONE (07:42)
[2024-05-13] MEDS: ONDANSETRON HCL INJ 2MG/ML 2ML 2 MG/ML VIAL IV STA (07:42)
[2024-05-13] MEDS: KETOROLAC TROMETHAMINE 30 MG/ML VIAL IV STA (07:42)
[2024-05-13 09:17] VITALS: PULSE 73; RESP 18; TEMP 97.6
[2024-05-13] MEDS ORDERED: ACETAMINOPHEN 325 MG TAB PO PRN (09:30)
[2024-05-13] MEDS ORDERED: DEXTROSE 50% SYRINGE 50 ML IV PRN (09:30)
[2024-05-13] MEDS ORDERED: HYDRALAZINE HCL 20 MG/ML VIAL IV PRN (09:30)
[2024-05-13 11:05] VITALS: BP 150/74; O2SAT 96
[2024-05-13 11:20] VITALS: BP 133/60; PULSE 72; RESP 18; TEMP 97.9; O2SAT 97
[2024-05-13] MEDS: INSULIN LISPRO 100 UNIT/1 ML 3ML VIAL SQ SCH (11:30)
[2024-05-13] MEDS: DICYCLOMINE HCL 10 MG CAP PO SCH (11:43)
[2024-05-13 16:00] VITALS: BP 113/53; PULSE 69; RESP 18; TEMP 98.1; O2SAT 96
[2024-05-13] MEDS: CHOLECALCIFEROL 1,000 UNIT TAB PO SCH (16:17)
[2024-05-13] MEDS: ASCORBIC ACID 500 MG TAB PO SCH (16:17)
[2024-05-13] MEDS ORDERED: METOPROLOL TART25 MG PO (17:59)
[2024-05-13] MEDS ORDERED: GLIMEPIRIDE2 MG PO (17:59)
[2024-05-13 19:39] VITALS: BP 129/57; PULSE 71; RESP 21; TEMP 99.1; O2SAT 97
[2024-05-13] MEDS: HYDROCODONE/APAP 10MG-325MG TAB PO PRN (20:27)
[2024-05-13] MEDS: LISINOPRIL 10 MG TAB PO SCH (20:36)
[2024-05-13] MEDS: ONDANSETRON HCL INJ 2MG/ML 2ML 2 MG/ML VIAL IV PRN (23:18)
[2024-05-13 23:40] VITALS: BP 127/59; PULSE 79; RESP 17; TEMP 99.7; O2SAT 98
[2024-05-14] VITALS (7 sets, daily range): BP systolic 123–161; BP diastolic 56–74; PULSE 61–86; RESP 16–18; TEMP 97.8–98.7; O2SAT 96–97
[2024-05-14] MEDS: HYDROMORPHONE 1MG/1ML INJ IV PRN
[2024-05-14] MEDS: LEVOTHYROXINE SODIUM 25 MCG TABLET PO SCH (05:26)
[2024-05-14 06:02] LABS: PHOSPHORUS 4.4 MG/DL (2.3-4.7)
[2024-05-14 06:05] LABS: BASOPHILS % 0.5 % (0.0-1.0); EOSINOPHILS # (AUTO) 0.1 (0.0-0.4); EOSINOPHILS % 1.4 % (0.0-6.0); LYMPHOCYTES # (AUTO) 2.2 (1.0-3.2); LYMPHOCYTES % 28.4 % (18.0-39.1); MEAN CORPUSCULAR HEMOGLOBIN 27.2 pg (28-32); MEAN CORPUSCULAR HGB CONC 30.8 g/dL (31-35); MEAN CORPUSCULAR VOLUME 88.4 fL (81-99); MONOCYTES # (AUTO) 0.6 (0.2-0.8); MONOCYTES % 7.5 % (4.4-11.3); NEUTROPHILS # (AUTO) 4.8 (2.1-6.9); NEUTROPHILS % 61.6 % (38.7-80.0); PLATELET COUNT 179 x10e3/uL (140-360); RED BLOOD COUNT 4.41 x10e6/uL (3.6-5.1); RED CELL DISTRIBUTION WIDTH 14.2 % (11.7-14.4); WHITE BLOOD COUNT 7.72 x10e3/uL (4.8-10.8)
[2024-05-14 06:23] LABS: THYROID STIMULATING HORMONE 0.53 uIU/mL (0.350-4.940)
[2024-05-14 06:36] LABS: ANION GAP 15.1 mmol/L (8-16); CALCIUM 9.4 mg/dL (8.4-10.2); CREATININE, SERUM 0.8 mg/dL (0.57-1.11); POTASSIUM 4.1 mmol/L (3.5-5.1)
[2024-05-14] MEDS: SODIUM CHLORIDE 0.9% 250ML 250 ML ONE (07:23)
[2024-05-14] MEDS: EZETIMIBE 10 MG TAB PO SCH (10:30)
[2024-05-14] MEDS: BUPROPION HCL 150 MG TABCR PO SCH (10:31)
[2024-05-14] MEDS: SERTRALINE HCL 100 MG TAB PO SCH (10:31)
[2024-05-14] MEDS: SODIUM CHLORIDE 0.9% 1000ML 1,000 ML IV SCH (14:06)
[2024-05-14] MEDS ORDERED: ACETAMINOPHEN 1000 MG/100 ML IV PRN (15:00)
[2024-05-15] VITALS (8 sets, daily range): BP systolic 116–143; BP diastolic 56–70; PULSE 62–83; RESP 16–20; TEMP 97.3–98.9; O2SAT 94–100
[2024-05-15 05:30] LABS: BASOPHILS % 0.4 % (0.0-1.0); EOSINOPHILS # (AUTO) 0.1 (0.0-0.4); EOSINOPHILS % 1.8 % (0.0-6.0); HEMATOCRIT 34.3 % (34.2-44.1); HEMOGLOBIN 10.5 g/dL (12.0-16.0); LYMPHOCYTES # (AUTO) 0.9 (1.0-3.2); LYMPHOCYTES % 15.1 % (18.0-39.1); MEAN CORPUSCULAR HEMOGLOBIN 27.2 pg (28-32); MEAN CORPUSCULAR HGB CONC 30.6 g/dL (31-35); MEAN CORPUSCULAR VOLUME 88.9 fL (81-99); MONOCYTES # (AUTO) 0.4 (0.2-0.8); MONOCYTES % 6.5 % (4.4-11.3); NEUTROPHILS # (AUTO) 4.3 (2.1-6.9); NEUTROPHILS % 75.3 % (38.7-80.0); PLATELET COUNT 136 x10e3/uL (140-360); RED BLOOD COUNT 3.86 x10e6/uL (3.6-5.1); RED CELL DISTRIBUTION WIDTH 14.2 % (11.7-14.4)
[2024-05-15 05:52] LABS: ANION GAP 12.3 mmol/L (8-16); CALCIUM 8.8 mg/dL (8.4-10.2); CREATININE, SERUM 0.73 mg/dL (0.57-1.11); POTASSIUM 4.3 mmol/L (3.5-5.1)
[2024-05-16] VITALS (8 sets, daily range): BP systolic 107–149; BP diastolic 42–81; PULSE 68–93; RESP 17–22; TEMP 97.4–99.4; O2SAT 95–100
[2024-05-16] MEDS ORDERED: ACETAMINOPHEN 1000 MG/100 ML 100 ML IV ONE (09:19)
[2024-05-16] MEDS ORDERED: IOPAMIDOL 610MG/1ML 300 MG/ML VIAL IV ONE (09:20)
[2024-05-16 10:17] LABS: CALCIUM 8.5 mg/dL (8.7-10.3)
[2024-05-16] MEDS: FENTANYL CITRATE/PF 100MCG/2 ML INJ ONE (10:33)
[2024-05-16] MEDS ORDERED: METOCLOPRAMIDE HCL 10 MG/2ML VIAL ONE (13:36)
[2024-05-16] MEDS ORDERED: PROPOFOL IV EMULSION 10 MG/ML 20 ML VIAL ONE (13:36)
[2024-05-16] MEDS ORDERED: LIDOCAINE HCL 2% LOCAL INJ 5 ML SDV VIAL INJ ONE (13:36)
[2024-05-16] MEDS ORDERED: ONDANSETRON HCL INJ 2MG/ML 2ML 2 MG/ML VIAL ONE (13:36)
[2024-05-16] MEDS ORDERED: EPHEDRINE SULFATE INJ 50 MG/ML VIAL ONE (13:36)
[2024-05-16] MEDS ORDERED: SEVOFLURANE INHAL SOLN 250 ML PEN BTL ONE (13:36)
[2024-05-16] MEDS ORDERED: FENTANYL CITRATE/PF 100MCG/2 ML INJ ONE (15:22)
[2024-05-17] VITALS (7 sets, daily range): BP systolic 136–141; BP diastolic 52–83; PULSE 73–95; RESP 16–21; TEMP 97.9–99.7; O2SAT 96–99
[2024-05-18 04:00] VITALS: BP 148/59; PULSE 82; RESP 18; TEMP 98.9; O2SAT 96
[2024-05-18 07:13] VITALS: BP 133/61; PULSE 80; RESP 20; TEMP 98.9; O2SAT 96
[2024-05-18 07:48] VITALS: BP 133/61; PULSE 80; RESP 20; TEMP 98.9; O2SAT 96
[2024-05-18 11:00] VITALS: BP 139/56; PULSE 72; RESP 19; TEMP 98.4; O2SAT 96
== END 2024-05-18 13:06 | disposition home or self-care (01) | DRG 661 ==
LOC: FSED 06:21 → ERHOLD 08:35 → MED/SURG 10:20
PROVIDERS: ADMIT Internal Medicine; ATTEND Internal Medicine
PROC: BT171ZZ Fluoroscopy of Left Ureter using Low Osmolar Contrast (ICD-10-PCS; 2024-05-16)
PROC: 0T768DZ Dilation of Right Ureter with Intraluminal Device, Via Natural or Artificial Opening Endoscopic (ICD-10-PCS; principal; 2024-05-16 09:19)
PROC: BT161ZZ Fluoroscopy of Right Ureter using Low Osmolar Contrast (ICD-10-PCS; 2024-05-16 09:19)
DX: N13.6 Pyonephrosis (principal); E03.9 Hypothyroidism, unspecified; N23 Unspecified renal colic; R31.0 Gross hematuria; I10 Essential (primary) hypertension; E78.5 Hyperlipidemia, unspecified; E11.9 Type 2 diabetes mellitus without complications; K21.9 Gastro-esophageal reflux disease without esophagitis; F32.A Depression, unspecified; R35.0 Frequency of micturition; R39.15 Urgency of urination; R39.11 Hesitancy of micturition; K59.00 Constipation, unspecified; E66.9 Obesity, unspecified; Z68.30 Body mass index [BMI] 30.0-30.9, adult; Z79.82 Long term (current) use of aspirin; Z79.85 Long-term (current) use of injectable non-insulin antidiabetic drugs; Z79.890 Hormone replacement therapy; Z90.49 Acquired absence of other specified parts of digestive tract; Z98.84 Bariatric surgery status; Z90.710 Acquired absence of both cervix and uterus; Z88.0 Allergy status to penicillin; Z88.5 Allergy status to narcotic agent; Z88.7 Allergy status to serum and vaccine
CPT/HCPCS: 36415; 74018; 74176; 74420; 80048; 80076; 81003; 82948; 83036; 83735; 83970; 84100; 84443; 84550; 85025; 87086; 99252; 99284; C1758; C2617; J0696; J1171; J1885; J2003; J2405; J2765; J7030; J7050

== ENCOUNTER 2024-05-31 14:44 | Inpatient (IN) | payer MEDICARE, OTHER ==
[~2024-05-31] VITALS: Ht 162.6 cm; Wt 75.8 kg
[~2024-05-31 14:44] MED LIST changes: +GLIMEPIRIDE2 MG PO; +METOPROLOL TART25 MG PO; +VESICARE5 MG PO
[2024-05-31 15:10] VITALS: PULSE 66; RESP 18; TEMP 99.2
[2024-05-31] MEDS: METRONIDAZOLE 500MG/NS 100ML 100 ML IV SCH (18:11)
[2024-05-31 18:40] VITALS: BP 138/50; PULSE 64; RESP 17; TEMP 99.3; O2SAT 99
[2024-05-31 20:00] VITALS: BP_SYST 119; BP_SYST 131; BP_DIAS 57; BP_DIAS 74; PULSE 66; PULSE 91; RESP 18; TEMP 98.1; TEMP 98.8; O2SAT 97; O2SAT 98
[2024-05-31] MEDS ORDERED: METRONIDAZOLE 500MG/NS 100ML IV SCH (22:00)
[2024-05-31] MEDS: D5.45%NS/KCL 20MEQ 1,000 ML IV ONE (22:20)
[2024-06-01] VITALS (9 sets, daily range): BP systolic 126–142; BP diastolic 44–99; PULSE 61–72; RESP 18–20; TEMP 98.4–99.4; O2SAT 95–100
[2024-06-01 01:54] LABS: TROPONIN I 0.007 ng/mL (0-0.300)
[2024-06-01 07:59] LABS: TROPONIN I 0.002 ng/mL (0-0.300)
[2024-06-01 09:00] LABS: BASOPHILS % 0.2 % (0.0-1.0); EOSINOPHILS % 0.5 % (0.0-6.0); HEMOGLOBIN 11.8 g/dL (12.0-16.0); LYMPHOCYTES # (AUTO) 1.5 (1.0-3.2); LYMPHOCYTES % 18.9 % (18.0-39.1); MEAN CORPUSCULAR HEMOGLOBIN 26.5 pg (28-32); MEAN CORPUSCULAR HGB CONC 30.3 g/dL (31-35); MEAN CORPUSCULAR VOLUME 87.6 fL (81-99); MONOCYTES # (AUTO) 0.6 (0.2-0.8); MONOCYTES % 7.7 % (4.4-11.3); NEUTROPHILS # (AUTO) 5.8 (2.1-6.9); PLATELET COUNT 203 x10e3/uL (140-360); RED BLOOD COUNT 4.45 x10e6/uL (3.6-5.1); RED CELL DISTRIBUTION WIDTH 14.4 % (11.7-14.4); WHITE BLOOD COUNT 8.03 x10e3/uL (4.8-10.8)
[2024-06-01] MEDS ORDERED: FAMOTIDINE 20 MG/2 ML VIAL IV SCH (09:00)
[2024-06-01 09:12] LABS: ANION GAP 17.4 mmol/L (8-16); CALCIUM 9.3 mg/dL (8.4-10.2); CREATININE, SERUM 0.91 mg/dL (0.57-1.11); POTASSIUM 4.4 mmol/L (3.5-5.1)
[2024-06-01] MEDS ORDERED: HYDROCODONE/APAP 10MG-325MG TAB PO PRN (09:45)
[2024-06-01] MEDS ORDERED: KETOROLAC TROMETHAMINE 30 MG/ML VIAL IV PRN (09:45)
[2024-06-01 09:55] LABS: TROPONIN I 0.014 ng/mL (0-0.300)
[2024-06-01] MEDS ORDERED: DEXTROSE 50% SYRINGE 50 ML IV PRN (10:00)
[2024-06-01] MEDS: LEVOTHYROXINE SODIUM 25 MCG TABLET PO SCH (10:15)
[2024-06-01] MEDS: SODIUM CHLORIDE 0.9% 250ML 250 ML ONE (10:44)
[2024-06-01] MEDS: ONDANSETRON HCL INJ 2MG/ML 2ML 2 MG/ML VIAL IV PRN (10:45)
[2024-06-01] MEDS: INSULIN LISPRO 100 UNIT/1 ML 3ML VIAL SQ SCH (11:30)
[2024-06-01] MEDS: SOLIFENACIN SUCCINATE 5 MG TAB PO SCH (12:27)
[2024-06-01] MEDS: BUPROPION HCL 150 MG TABCR PO SCH (12:27)
[2024-06-01] MEDS: METOPROLOL TARTRATE 25 MG TAB PO SCH ×2 (12:28→21:07)
[2024-06-01] MEDS ORDERED: SENNA-S TABLET PO SCH (17:00)
[2024-06-01] MEDS: EZETIMIBE 10 MG TAB PO SCH (21:04)
[2024-06-01] MEDS: SENNA-S TABLET PO SCH (21:05)
[2024-06-01] MEDS: LISINOPRIL 2.5 MG TAB PO SCH (21:06)
[2024-06-01] MEDS: CHOLECALCIFEROL 1,000 UNIT TAB PO SCH (21:06)
[2024-06-02] VITALS (7 sets, daily range): BP systolic 105–130; BP diastolic 45–62; PULSE 58–67; RESP 17–19; TEMP 97.3–98.6; O2SAT 95–100
[2024-06-02] MEDS: METOCLOPRAMIDE HCL 10 MG/2ML VIAL IV SCH (05:39)
[2024-06-02] MEDS: ASPIRIN 81 MG CHEW TAB PO SCH (08:56)
[2024-06-02] MEDS: SERTRALINE HCL 100 MG TAB PO SCH (08:57)
[2024-06-03 00:19] VITALS: BP 126/56; PULSE 64; RESP 18; TEMP 98; O2SAT 96
[2024-06-03 06:21] VITALS: BP 106/51; PULSE 54; RESP 18; TEMP 97.8; O2SAT 54
[2024-06-03 08:00] VITALS: BP 103/56; PULSE 52; RESP 20; TEMP 98.1; O2SAT 97
[2024-06-03 08:20] LABS: BASOPHILS % 0.3 % (0.0-1.0); EOSINOPHILS # (AUTO) 0.1 (0.0-0.4); HEMATOCRIT 40.1 % (34.2-44.1); HEMOGLOBIN 12.1 g/dL (12.0-16.0); LYMPHOCYTES # (AUTO) 1.2 (1.0-3.2); LYMPHOCYTES % 18.8 % (18.0-39.1); MEAN CORPUSCULAR HEMOGLOBIN 26.7 pg (28-32); MEAN CORPUSCULAR HGB CONC 30.2 g/dL (31-35); MEAN CORPUSCULAR VOLUME 88.5 fL (81-99); MONOCYTES # (AUTO) 0.5 (0.2-0.8); NEUTROPHILS # (AUTO) 4.4 (2.1-6.9); NEUTROPHILS % 71.4 % (38.7-80.0); PLATELET COUNT 174 x10e3/uL (140-360); RED BLOOD COUNT 4.53 x10e6/uL (3.6-5.1); RED CELL DISTRIBUTION WIDTH 14.6 % (11.7-14.4); WHITE BLOOD COUNT 6.11 x10e3/uL (4.8-10.8)
[2024-06-03 08:46] LABS: ANION GAP 14.3 mmol/L (8-16); CALCIUM 9.1 mg/dL (8.4-10.2); CREATININE, SERUM 0.82 mg/dL (0.57-1.11); POTASSIUM 4.3 mmol/L (3.5-5.1)
[2024-06-03 12:00] VITALS: BP 126/50; PULSE 61; RESP 18; TEMP 97.8; O2SAT 100
[2024-06-03 16:00] VITALS: BP 125/52; PULSE 63; RESP 20; TEMP 98.4; O2SAT 97
[2024-06-03 20:00] VITALS: BP 133/70; PULSE 82; RESP 16; TEMP 97.3; O2SAT 96
[2024-06-04] VITALS (7 sets, daily range): BP systolic 116–133; BP diastolic 41–65; PULSE 56–87; RESP 16–18; TEMP 97.3–98.5; O2SAT 95–100
[2024-06-04] MEDS ORDERED: ACETAMINOPHEN 1000 MG/100 ML 100 ML IV ONE (06:40)
[2024-06-04] MEDS ORDERED: IOPAMIDOL 610MG/1ML 300 MG/ML VIAL IV ONE (06:51)
[2024-06-04] MEDS ORDERED: KETOROLAC TROMETHAMINE 30 MG/ML VIAL IV PRN (22:45)
[2024-06-05] VITALS: BP 127/55; PULSE 64; RESP 17; TEMP 98.9; O2SAT 97
[2024-06-05 04:00] VITALS: BP 108/56; PULSE 60; RESP 20; TEMP 98.3; O2SAT 99
[2024-06-05 05:32] LABS: BASOPHILS % 0.3 % (0.0-1.0); EOSINOPHILS % 0.3 % (0.0-6.0); HEMATOCRIT 39.2 % (34.2-44.1); HEMOGLOBIN 12.3 g/dL (12.0-16.0); LYMPHOCYTES # (AUTO) 1.9 (1.0-3.2); LYMPHOCYTES % 25.8 % (18.0-39.1); MEAN CORPUSCULAR HEMOGLOBIN 26.8 pg (28-32); MEAN CORPUSCULAR HGB CONC 31.4 g/dL (31-35); MEAN CORPUSCULAR VOLUME 85.4 fL (81-99); MONOCYTES # (AUTO) 0.5 (0.2-0.8); MONOCYTES % 6.5 % (4.4-11.3); NEUTROPHILS % 66.4 % (38.7-80.0); PLATELET COUNT 193 x10e3/uL (140-360); RED BLOOD COUNT 4.59 x10e6/uL (3.6-5.1); RED CELL DISTRIBUTION WIDTH 14.5 % (11.7-14.4); WHITE BLOOD COUNT 7.44 x10e3/uL (4.8-10.8)
[2024-06-05 05:58] LABS: CALCIUM 9.2 mg/dL (8.4-10.2); CREATININE, SERUM 0.83 mg/dL (0.57-1.11)
[2024-06-05 07:58] VITALS: BP 106/51; PULSE 57; RESP 18; TEMP 97.8; O2SAT 97
[2024-06-05 08:02] VITALS: BP 106/51; PULSE 57; RESP 18; TEMP 97.8; O2SAT 97
[2024-06-05 08:11] VITALS: BP 106/51; PULSE 57
== END 2024-06-05 10:30 | disposition home or self-care (01) | DRG 392 ==
LOC: FSED 14:48 → ERHOLD 17:58 → MED/SURG 19:32
PROVIDERS: ADMIT Internal Medicine; ATTEND Internal Medicine
PROC: BT1D1ZZ Fluoroscopy of Right Kidney, Ureter and Bladder using Low Osmolar Contrast (ICD-10-PCS; 2024-06-04)
PROC: 0TP98DZ Removal of Intraluminal Device from Ureter, Via Natural or Artificial Opening Endoscopic (ICD-10-PCS; principal; 2024-06-04 06:54)
DX: K57.32 Diverticulitis of large intestine without perforation or abscess without bleeding (principal); N13.30 Unspecified hydronephrosis; N39.0 Urinary tract infection, site not specified; Z46.6 Encounter for fitting and adjustment of urinary device; Z87.442 Personal history of urinary calculi; E87.8 Other disorders of electrolyte and fluid balance, not elsewhere classified; I10 Essential (primary) hypertension; E78.00 Pure hypercholesterolemia, unspecified; E03.9 Hypothyroidism, unspecified; K21.9 Gastro-esophageal reflux disease without esophagitis; E11.9 Type 2 diabetes mellitus without complications; Z79.84 Long term (current) use of oral hypoglycemic drugs; R32 Unspecified urinary incontinence; K59.00 Constipation, unspecified; D35.02 Benign neoplasm of left adrenal gland; D35.01 Benign neoplasm of right adrenal gland; F32.A Depression, unspecified; Z79.899 Other long term (current) drug therapy; Z79.82 Long term (current) use of aspirin
CPT/HCPCS: 36415; 74176; 74420; 80048; 80053; 81003; 82550; 82948; 84484; 85025; 87086; 87186; 93005; 99284; C1758; C1769; J0696; J2405; J2470; J2765; J7050

== ENCOUNTER 2024-06-10 15:19 | Inpatient (IN) | payer MEDICARE, OTHER ==
[~2024-06-10] VITALS: Ht 162.6 cm; Wt 81.0 kg
[2024-06-10 15:36] VITALS: TEMP 98.9
[2024-06-10 16:04] LABS: BASOPHILS % 0.2 % (0.0-1.0); EOSINOPHILS # (AUTO) 0.1 (0.0-0.4); EOSINOPHILS % 0.8 % (0.0-6.0); HEMOGLOBIN 12.8 g/dL (12.0-16.0); LYMPHOCYTES # (AUTO) 1.7 (1.0-3.2); LYMPHOCYTES % 20.4 % (18.0-39.1); MEAN CORPUSCULAR HEMOGLOBIN 27.2 pg (28-32); MEAN CORPUSCULAR HGB CONC 32.8 g/dL (31-35); MONOCYTES # (AUTO) 0.6 (0.2-0.8); MONOCYTES % 6.8 % (4.4-11.3); NEUTROPHILS % 71.2 % (38.7-80.0); PLATELET COUNT 181 x10e3/uL (140-360); RED CELL DISTRIBUTION WIDTH 14.5 % (11.7-14.4); WHITE BLOOD COUNT 8.37 x10e3/uL (4.8-10.8)
[2024-06-10 16:21] LABS: INR 0.92; PARTIAL THROMBOPLASTIN TIME 25.8 seconds (23.8-35.5); PROTHROMBIN TIME 12.9 seconds (11.9-14.5)
[2024-06-10 16:35] LABS: ALBUMIN 3.5 g/dL (3.5-5.0); ANION GAP 14.1 mmol/L (8-16); BILIRUBIN,TOTAL 0.4 mg/dL (0.2-1.2); CALCIUM 9.2 mg/dL (8.4-10.2); CREATININE, SERUM 0.92 mg/dL (0.57-1.11); MAGNESIUM 2.1 MG/DL (1.3-2.1); POTASSIUM 4.1 mmol/L (3.5-5.1); TOTAL PROTEIN 7.1 g/dL (6.5-8.1)
[2024-06-10] MEDS ORDERED: IOPAMIDOL 370 MG/ML 100 ML INFUS..BTL INJ ONE (16:43)
[2024-06-10] MEDS: SODIUM CHLORIDE 0.9% 1000ML 1,000 ML IV STA (17:23)
[2024-06-10 17:45] VITALS: PULSE 60; RESP 16
[2024-06-10 18:42] LABS: BILIRUBIN,URINE NEGATIVE (NEGATIVE); CLARITY,URINE CLEAR (CLEAR); COLOR,URINE YELLOW (YELLOW); GLUCOSE, URINE NEGATIVE (NEGATIVE); KETONES,URINE NEGATIVE (NEGATIVE); LEUKOCYTE ESTERASE ,URINE NEGATIVE (NEGATIVE); NITRITE,URINE NEGATIVE (NEGATIVE); PH,URINE 6.5 (5 - 7); PROTEIN,URINE DIPSTICK NEGATIVE (NEGATIVE); URINE UROBILINOGEN 0.2 mg/dL (0.2 - 1)
[2024-06-10 18:49] LABS: EPITHELIAL CELLS,URINE RARE /LPF; RBC,URINE 0-5 /HPF (0-5); WBC,URINE (MAN) 0-5 /HPF (0-5)
[2024-06-10 20:45] VITALS: BP 148/65; PULSE 62; RESP 16; TEMP 97; O2SAT 100
[2024-06-10 21:00] VITALS: BP 148/65; PULSE 62; RESP 16; TEMP 97; O2SAT 100
[2024-06-10] MEDS: SODIUM CHLORIDE 0.9% 1000ML 1,000 ML IV SCH (22:07)
[2024-06-10] MEDS: MEROPENEM 1 GM in SODIUM CHLORIDE 0.9% 100 ML IV SCH (22:12)
[2024-06-11] VITALS (8 sets, daily range): BP systolic 110–149; BP diastolic 49–58; PULSE 63–71; RESP 16–17; TEMP 97.2–98.5; O2SAT 96–100
[2024-06-11 06:04] LABS: BASOPHILS % 0.3 % (0.0-1.0); EOSINOPHILS # (AUTO) 0.1 (0.0-0.4); EOSINOPHILS % 2.2 % (0.0-6.0); HEMATOCRIT 33.2 % (34.2-44.1); HEMOGLOBIN 10.5 g/dL (12.0-16.0); LYMPHOCYTES # (AUTO) 1.7 (1.0-3.2); LYMPHOCYTES % 29.4 % (18.0-39.1); MEAN CORPUSCULAR HEMOGLOBIN 26.9 pg (28-32); MEAN CORPUSCULAR HGB CONC 31.6 g/dL (31-35); MEAN CORPUSCULAR VOLUME 84.9 fL (81-99); MONOCYTES # (AUTO) 0.4 (0.2-0.8); MONOCYTES % 7.4 % (4.4-11.3); NEUTROPHILS # (AUTO) 3.5 (2.1-6.9); PLATELET COUNT 126 x10e3/uL (140-360); RED BLOOD COUNT 3.91 x10e6/uL (3.6-5.1); RED CELL DISTRIBUTION WIDTH 14.6 % (11.7-14.4); WHITE BLOOD COUNT 5.91 x10e3/uL (4.8-10.8)
[2024-06-11 06:31] LABS: CALCIUM 8.3 mg/dL (8.4-10.2); CREATININE, SERUM 0.76 mg/dL (0.57-1.11)
[2024-06-11] MEDS ORDERED: ACETAMINOPHEN 325 MG TAB PO PRN (08:45)
[2024-06-11] MEDS ORDERED: ONDANSETRON HCL INJ 2MG/ML 2ML 2 MG/ML VIAL IV PRN (08:45)
[2024-06-11] MEDS ORDERED: DEXTROSE 50% SYRINGE 50 ML IV PRN (08:45)
[2024-06-11] MEDS: MEROPENEM 1 GM in SODIUM CHLORIDE 0.9% 100 ML IV SCH (08:58)
[2024-06-11] MEDS: EZETIMIBE 10 MG TAB PO SCH (08:59)
[2024-06-11] MEDS: METOPROLOL TARTRATE 25 MG TAB PO SCH (09:00)
[2024-06-11] MEDS ORDERED: GLIMEPIRIDE 2 MG TAB PO SCH (09:00)
[2024-06-11] MEDS: BUPROPION HCL 150 MG TABCR PO SCH (09:01)
[2024-06-11] MEDS: SOLIFENACIN SUCCINATE 5 MG TAB PO SCH (09:01)
[2024-06-11] MEDS: LEVOTHYROXINE SODIUM 25 MCG TABLET PO SCH (09:01)
[2024-06-11] MEDS: SERTRALINE HCL 100 MG TAB PO SCH (09:02)
[2024-06-11] MEDS: GLIMEPIRIDE 2 MG TAB PO SCH (09:08)
[2024-06-11] MEDS: INSULIN LISPRO 100 UNIT/1 ML 3ML VIAL SQ SCH (12:16)
[2024-06-11] MEDS ORDERED: SODIUM CHLORIDE 0.9% 0 ML ONE (16:42)
[2024-06-11] MEDS: CHOLECALCIFEROL 1,000 UNIT TAB PO SCH (20:49)
[2024-06-11] MEDS: LISINOPRIL 10 MG TAB PO SCH (20:50)
[2024-06-12] VITALS (10 sets, daily range): BP systolic 115–188; BP diastolic 43–71; PULSE 62–70; RESP 16–19; TEMP 97.2–98.9; O2SAT 97–100
[2024-06-12 02:55] LABS: WBC,FECAL (FECAL LACTOFERRIN) POSITIVE (NEGATIVE)
[2024-06-12 03:18] LABS: CDIFF AG QUIK CHEK **POSITIVE** (NEGATIVE); CDIFF TOX QUIK CHEK NEGATIVE (NEGATIVE)
[2024-06-12 05:58] LABS: BASOPHILS % 0.4 % (0.0-1.0); EOSINOPHILS # (AUTO) 0.1 (0.0-0.4); EOSINOPHILS % 1.1 % (0.0-6.0); HEMATOCRIT 34.8 % (34.2-44.1); HEMOGLOBIN 10.7 g/dL (12.0-16.0); LYMPHOCYTES # (AUTO) 1.4 (1.0-3.2); LYMPHOCYTES % 25.6 % (18.0-39.1); MEAN CORPUSCULAR HGB CONC 30.7 g/dL (31-35); MEAN CORPUSCULAR VOLUME 87.7 fL (81-99); MONOCYTES # (AUTO) 0.4 (0.2-0.8); MONOCYTES % 7.6 % (4.4-11.3); NEUTROPHILS # (AUTO) 3.5 (2.1-6.9); NEUTROPHILS % 64.9 % (38.7-80.0); PLATELET COUNT 129 x10e3/uL (140-360); RED BLOOD COUNT 3.97 x10e6/uL (3.6-5.1); RED CELL DISTRIBUTION WIDTH 14.6 % (11.7-14.4); WHITE BLOOD COUNT 5.36 x10e3/uL (4.8-10.8)
[2024-06-12 06:20] LABS: ANION GAP 11.2 mmol/L (8-16); CREATININE, SERUM 0.69 mg/dL (0.57-1.11); POTASSIUM 4.2 mmol/L (3.5-5.1)
[2024-06-13] VITALS (9 sets, daily range): BP systolic 116–155; BP diastolic 50–63; PULSE 56–64; RESP 18–19; TEMP 97.7–99.1; O2SAT 96–100
[2024-06-13 03:34] LABS: % IRON SATURATION 25 % (15-50); IRON 69 ug/dL (50-170); TOTAL IRON BINDING CAPACITY 280 ug/dL (261-478); TRANSFERRIN 200 mg/dL (180-382)
[2024-06-13 07:00] LABS: FOLATE 6.4 ng/mL (7.0-15.4)
[2024-06-13] MEDS ORDERED: PROPOFOL IV EMULSION 10 MG/ML 20 ML VIAL ONE (07:49)
[2024-06-13] MEDS ORDERED: LIDOCAINE HCL 2% LOCAL INJ 5 ML SDV VIAL INJ ONE (07:49)
[2024-06-13] MEDS: LACTOBACILLUS ACIDOPHILUS CAPSULE PO SCH (09:16)
[2024-06-13] MEDS: VANCOMYCIN HCL 125 MG CAPSULE PO SCH (09:16)
[2024-06-14] MEDS: HYDROCORTISONE ACETATE 25 MG/SUPP.RECT SUPP RC STA (01:14)
[2024-06-14 06:44] LABS: BASOPHILS % 0.2 % (0.0-1.0); EOSINOPHILS # (AUTO) 0.2 (0.0-0.4); EOSINOPHILS % 3.4 % (0.0-6.0); HEMATOCRIT 35.6 % (34.2-44.1); LYMPHOCYTES # (AUTO) 1.5 (1.0-3.2); MEAN CORPUSCULAR HEMOGLOBIN 27.3 pg (28-32); MEAN CORPUSCULAR HGB CONC 30.9 g/dL (31-35); MEAN CORPUSCULAR VOLUME 88.3 fL (81-99); MONOCYTES # (AUTO) 0.5 (0.2-0.8); MONOCYTES % 8.4 % (4.4-11.3); NEUTROPHILS # (AUTO) 3.7 (2.1-6.9); NEUTROPHILS % 62.7 % (38.7-80.0); PLATELET COUNT 129 x10e3/uL (140-360); RED BLOOD COUNT 4.03 x10e6/uL (3.6-5.1); RED CELL DISTRIBUTION WIDTH 14.9 % (11.7-14.4); WHITE BLOOD COUNT 5.93 x10e3/uL (4.8-10.8)
[2024-06-14 07:10] LABS: ANION GAP 13.2 mmol/L (8-16); CALCIUM 9.2 mg/dL (8.4-10.2); CREATININE, SERUM 0.78 mg/dL (0.57-1.11); POTASSIUM 4.2 mmol/L (3.5-5.1)
[2024-06-14 09:04] VITALS: BP 108/41; PULSE 94; RESP 18; TEMP 97.9; O2SAT 100
[2024-06-14] MEDS: HYDROCORTISONE ACETATE 25 MG/SUPP.RECT SUPP RC SCH (09:25)
[2024-06-14 09:26] VITALS: BP 108/41; PULSE 94
[2024-06-14] MEDS: PANTOPRAZOLE SOD 40 MG TABEC PO SCH (09:27)
== END 2024-06-14 11:32 | disposition home or self-care (01) | DRG 378 ==
LOC: ER 15:35 → ERHOLD 18:35 → MED/SURG2 20:11
PROVIDERS: ADMIT Internal Medicine; ATTEND Internal Medicine
DX: K62.5 Hemorrhage of anus and rectum (principal); N13.6 Pyonephrosis; Z16.24 Resistance to multiple antibiotics; D69.6 Thrombocytopenia, unspecified; B96.5 Pseudomonas (aeruginosa) (mallei) (pseudomallei) as the cause of diseases classified elsewhere; K64.9 Unspecified hemorrhoids; D64.9 Anemia, unspecified; R32 Unspecified urinary incontinence; R35.1 Nocturia; R19.5 Other fecal abnormalities; K57.30 Diverticulosis of large intestine without perforation or abscess without bleeding; K21.9 Gastro-esophageal reflux disease without esophagitis; I10 Essential (primary) hypertension; E78.00 Pure hypercholesterolemia, unspecified; E66.9 Obesity, unspecified; Z68.30 Body mass index [BMI] 30.0-30.9, adult; F41.9 Anxiety disorder, unspecified; F32.A Depression, unspecified; Z87.440 Personal history of urinary (tract) infections; Z79.899 Other long term (current) drug therapy
CPT/HCPCS: 36415; 74174; 80048; 80053; 81001; 82607; 82746; 82948; 83540; 83630; 83735; 83993; 84466; 85025; 85045; 85610; 85730; 86850; 86900; 87045; 87086; 87177; 87324; 87449; 99284; J2003; J2185; J2470; J7030; J7050; Q9967

== ENCOUNTER 2025-05-17 15:04 | Emergency (ER) | payer MEDICARE, OTHER ==
[~2025-05-17] VITALS: Ht 162.6 cm; Wt 83.6 kg
[2025-05-17] MEDS: SODIUM CHLORIDE 0.9% 1000ML 1,000 ML IV ONE (16:12)
[2025-05-17 18:07] VITALS: PULSE 71; RESP 18; TEMP 98.4; O2SAT 100
== END 2025-05-17 18:07 | disposition home or self-care (01) ==
LOC: FSED 15:26
DX: R19.7 Diarrhea, unspecified (principal); E86.0 Dehydration; I10 Essential (primary) hypertension; E78.5 Hyperlipidemia, unspecified; K21.9 Gastro-esophageal reflux disease without esophagitis; F41.9 Anxiety disorder, unspecified; F32.A Depression, unspecified; Z98.84 Bariatric surgery status
CPT/HCPCS: 80053; 81003; 85025; 99283; J7030